=== PATIENT | female | born 1990 | race Two or more races ===

== ENCOUNTER 2019-11-07 17:30 | Emergency (ER) | payer OTHER ==
[2019-11-07 17:37] VITALS: BMI 30.4
[2019-11-07 18:19] VITALS: BP 115/75; PULSE 92; TEMP 98
--- NOTE | 2019-11-07 18:32 | PD.OB.PROG ---
Past Medical History - Primary Care Physician PCP:: Abiola Carty Documenting Provider Type: Attending - Admission Chief Complaint: RT FOOT SPRAIN & PAIN , SWELLING in pt32.6/7 wks gestation History of Present Illness: h/o sprain in Rt foot on 10/03/19 , presently swelling & pain is persistent she came to ER . pt sent from ER for Ob evaluation care ar 2, [facility], . No chart available wt gain 13 lbs h/o uti 2 wks ago treated with antibiotics History Source: Patient Limitations to Obtaining History: No Limitations - Nursing Documentation Maternal Triage Index: Maternal Triage Index ( Priority 4, Non-urgent MFTI) Nursing Documentation Reviewed: Yes - Past Medical History SHOE FOLDER: Denies/None Cardio/Vascular: Denies/None Pulmonary: Denies/None Gastrointestinal: Denies/None Hepatobiliary: Denies/None Renal/: Denies/None Reproductive: Denies/None ...: 5 ...Para: 3 ([address] 06/2006. 01/2010, 08/2015 ) ...Term: 3 (no complications ) ...Induced : 1 (2013, 1st trimester ) ... Weeks Gestation by Dates: 32.6 ...EDC by Sono: 12/27/19 Heme/Onc: Denies/None Infectious Disease: Denies/None Psych: Denies/None Musculoskeletal: Denies/None Rheumatology: Denies/None ENT: Denies/None Endocrine: Denies/None Dermatology: Denies/None - Past Surgical History Additional Surgical History: lt fingers tendon surgery - Smoking History Smoking history: Never smoked - Alcohol/Substance Use Hx Alcohol Use: No History of Substance Use: reports: None Review of Systems - Review of Systems Constitutional: reports: No Symptoms Eyes: reports: No Symptoms HENT: reports: No Symptoms Neck: reports: No Symptoms Cardiovascular: reports: No Symptoms Respiratory: reports: No Symptoms Gastrointestinal: reports: No Symptoms Genitourinary: reports: No Symptoms Breasts: reports: No Symptoms Reported Musculoskeletal: reports: No Symptoms Integumentary: reports: No Symptoms Neurological: reports: No Symptoms Endocrine: reports: No Symptoms Hematology/Lymphatic: reports: No Symptoms Psychiatric: reports: No Symptoms Pain Intensity: 7 (rt ankle pain ) Physical Exam - Obstetrical Vital Signs: Vital Signs Temperature 98.0 F 11/07/19 18:05 Pulse Rate 92 H 11/07/19 18:05 Respiratory Rate 20 11/07/19 18:05 Blood Pressure 115/75 11/07/19 18:05 O2 Sat by Pulse Oximetry (%) 100 11/07/19 17:33 Constitutional: Yes: Well Nourished, Mild Distress (due to foot pain) Eyes: Yes: WNL HENT: Yes: WNL Neck: Yes: WNL Cardiovascular: Yes: WNL Lungs: Clear to auscultation Breast(s): Yes: Other (not done) - Abdominal Exam/OB Fundal Height: 33 Number of Fetuses: Single Presentation: Vertex Contractions: No Monitor Mode: External Heart Rate (range): 140- Heart Rate Location: Midline Category: I Decelerations: None - Vaginal Exam/OB Vaginal Exam Deferred: Yes Vaginal Bleeding: No Speculum Exam: No Dilatation (cm): close Effacement (%): unefface Amniotic Membrane Status: Intact Presentation: Vertex/Position Station: -4 - Physical Exam Musculoskeletal: Yes: WNL Extremities: Yes: WNL. No: Calf Tenderness Edema: No (RT ankle edema , tender) Integumentary: Yes: Tattoos, Other (Rightt ankle edema front of ankle, erythematous, tender, movementd restricte due to pain) Deep Tendon Reflex Grade: Normal +2 ...Motor Strength: WNL Psychiatric: Yes: WNL, Alert Problem List - Problems (1) with 32 completed weeks gestation Code(s): Z3A.32 - 32 WEEKS GESTATION OF (2) Right ankle sprain Code(s): S93.401A - SPRAIN OF UNSPECIFIED LIGAMENT OF RIGHT ANKLE, INIT ENCNTR Assessment/Plan 29 yrs , 32.6/7 wks possible Rt ankle sprain NST reactive , FHR tracing reassuring, not in labor Plan send back to ER for ankle evaluation
--- NOTE | 2019-11-07 19:47 | PDOC ---
History of Present Illness - General Chief Complaint: Labor Assessment Stated Complaint: SWOLLEN ANKLE/31WKS PREG Time Seen by Provider: 11/07/19 19:39 - History of Present Illness Initial Comments: 11/07/19 19:44 7-month-old gravid female 29 years old presents for evaluation of right ankle pain. She describes an inversion injury which happened about a week or so ago. She points to the lateral aspect of the right ankle as the area of her discomfort. Past History - Medical History Allergies/Adverse Reactions: Allergies Allergy/AdvReac Type Severity Reaction Status Date / Time No Known Allergies Allergy Verified 11/07/19 17:33 Home Medications: Ambulatory Orders Tablet 1 tab PO DAILY 11/07/19 COPD: No Other medical history: DENIES - Reproductive History Is Patient Now?: Yes - Immunization History Immunization Up to Date: Yes - Psycho-Social/Smoking History Smoking History: Never smoked - Substance Abuse Hx (Audit-C & DAST Scrn) How often the patient has a drink containing alcohol: Never Score: In Men: 4 or > Positive; In Women: 3 or > Positive: 0 Screen Result (Pos requires Nsg. Audit-10AR): Negative In the last yr the pt used illegal drug/Rx for NonMed reason: No Score: Yes response is considered Positive: 0 Screen Result (Positive result requires Nsg. DAST-10): Negative Review of Systems - Review of Systems Musculoskeletal: Yes: Joint Pain *Physical Exam - Vital Signs Last Vital Signs Temp Pulse Resp BP Pulse Ox 98.0 F 92 H 20 115/75 100 11/07/19 18:05 11/07/19 18:05 11/07/19 18:05 11/07/19 18:05 11/07/19 17:33 - Physical Exam 11/07/19 19:44 Ankle skin color and temperature normal range of motion is slightly limited. There is no tenderness about the proximal fibula or along its distal course. No tenderness about the medial lateral malleolus base of the fifth metatarsal or navicular. Mild tenderness over the ATFL without instability no gross sensorimotor deficits neurovascular intact. Medical Decision Making - Medical Decision Making 11/07/19 19:44 Patient refused crutches. She has no bony tenderness I am in agreement with this I can feel I can safely let her be discharged with a Aircast weight welfare project manager weight-bear as tolerated with crutches and follow-up with orthopedics. She is in agreement with the plan I explained to her I cannot rule out a fracture without it x-rayed I have reviewed the pathophysiology with the patient. They are in agreement with the treatment plan all questions were answered to their satisfaction. Understanding for follow-up without fail was also conveyed to the patient. Again they are in agreement. Discharge - Discharge Information Problems reviewed: Yes Clinical Impression/Diagnosis: Right ankle sprain Condition: Stable Disposition: HOME - Admission No - Follow up/Referral Referrals: Grey Cain DO [Staff Physician] - - Patient Discharge Instructions Additional Instructions: You may weight-bear as tolerated with use of crutches in the Aircast Tylenol as directed for pain. Return to the emergency room for worsening symptoms. And without fail please follow-up with orthopedic surgery in 1 to 2 days for further evaluation and treatment options. - Post Discharge Activity
== END 2019-11-07 19:58 | disposition home or self-care (01) ==
LOC: JER 17:30 → JERFT 17:30
DX: S93.401A Sprain of unspecified ligament of right ankle, initial encounter (principal); Z3A.32 32 weeks gestation of pregnancy
CPT/HCPCS: 99282-25

== ENCOUNTER 2019-12-26 00:15 | Inpatient (IN) | payer OTHER ==
--- OUTSIDE RECORDS SUMMARY | 2019-12-26 00:37 | XMS ---
:1990 Author Organization [facility] Care Team Providers Name Role Phone ED STAFF PHYSICIAN, STAFF Unavailable Unavailable ED STAFF PHYSICIAN Unavailable Unavailable Re-disclosure Warning The records that you are about to access may contain information from federally- assisted alcohol or drug abuse programs. If such information is present, then the following federally mandated warning applies: This information has been disclosed to you from records protected by federal confidentiality rules (42 CFR part 2). The federal rules prohibit you from making any further disclosure of this information unless further disclosure is expressly permitted by the written consent of the person to whom it pertains or as otherwise permitted by 42 CFR part 2. A general authorization for the release of medical or other information is NOT sufficient for this purpose. The Federal rules restrict any use of the information to criminally investigate or prosecute any alcohol or drug abuse patient.The records that you are about to access may contain highly sensitive health information, the redisclosure of which is protected by Article 27-F of the [place] Public [employer] law. If you continue you may haveaccess to information: Regarding HIV / AIDS; Provided by facilities licensed or operated by the [place] Office of Mental Health; or Provided by the [place] Office for People With Developmental Disabilities. If such information is present, then the following [place] mandated warning applies: This information has been disclosed to you from confidential records which are protected by state law. State law prohibits you from making any further disclosure of this information without the specific written consent of the person to whom it pertains, or as otherwise permitted by law. Any unauthorized further disclosure in violation of state law may result in a fine or penitentiary sentence or both. A general authorization for the release of medical or other information is NOT sufficient authorization for further disclosure. Encounters Encounter Providers Location Date Indications Data Source(s ) Emergency Attender: ED STAFF H 06/04/2019 [facility] PHYSICIANAttender: 09:25:[address] [facility] STAFF ED STAFF - 06/05/2019 PHYSICIANAdmitter: 02:35:00 AM EDT ED STAFF PHYSICIAN Patient discharged. Insurance Providers Payer name Policy type Policy ID Covered Covered alliance party's Policy P fito / Coverage alliance party ID relationship to Phan Inf ormation type phan [facility] [id number] NON CAP O [employer] O [id number] [facility] [id number] ESSENTIALS Problems, Conditions, and Diagnoses Code Display Name Description Problem Type Effective Dates Data Source(s) Z33.1 state, STATE, Diagnosis 06/04/2019 Yulia car [facility] incidental INCIDENTAL 09:25:00 PM EDT Medical C enter R10.9 Unspecified UNSPECIFIED Diagnosis 06/04/2019 [facility] abdominal pain ABDOMINAL PAIN 09:25:[address] [facility] R51 Headache HEADACHE Diagnosis 06/04/2019 [facility] 09:25:00 PM EDT Medical C enter Results ID Date Data Source [id number] 08/18/2019 03:56:00 PM EDT [facility] Name Value Range Interpretation Description Data Sup porting Code Source(s) Document(s ) SARS [facility] CORONAVIRUS 2 RNA This lab was ordered by [facility] and reported by [facility]. ID Date Data Source HematologyRou.[id number] 06/04/2019 11:20:[address] [facility] 0400 Name Value Range Interpretation Description Data Sup porting Code Source(s) Document(s ) Hemoglobin 12.3-16. <content [facility] [Mass/volume] in 0 styleCode="[facility] Blood ">Hemoglobin Medical </content>13.3 Center G/DL<content styleCode="Ital ics"> (12.3-16.0 G/DL)</content> Leukocytes 4.4-11.0 <content [facility] [#/volume] in styleCode="[facility] Blood by ">White Blood Medical Automated count Cell Count Center </content>7.48 KCUMM<content styleCode="Ital ics"> (4.4-11.0 KCUMM)</content > Erythrocytes 4.0-5.1 <content [facility] [#/volume] in styleCode="[facility] Blood by ">Red Blood Medical Automated count Cell Count Center </content>4.28 MCUMM<content styleCode="Ital ics"> (4.0-5.1 MCUMM)</content > Hematocrit 36.0-46. <content [facility] [Volume 0 styleCode="[facility] Fraction] of ">Hematocrit Medical Blood by </content>39.2 Center Automated count %<content styleCode="Ital ics"> (36.0-46.0 %)</content> Erythrocyte mean 80.0-100 <content [facility] corpuscular .0 styleCode="[facility] volume [Entitic ">Mean Medical volume] by Corpuscular Center Automated count Volume </content>91.6 FL<content styleCode="Ital ics"> (80.0-100.0 FL)</content> Erythrocyte 11.5-14. <content [facility] distribution 5 styleCode="[facility] width [Ratio] by ">Red Cell Medical Automated count Distribution Center Width </content>12.8 %<content styleCode="Ital ics"> (11.5-14.5 %)</content> Erythrocyte mean 26.0-34. <content [facility] corpuscular 0 styleCode="[facility] hemoglobin ">Mean Medical [Entitic mass] Corposcular Center by Automated Hemoglobin count </content>31.1 PG<content styleCode="Ital ics"> (26.0-34.0 PG)</content> Platelets 130-400 <content [facility] [#/volume] in styleCode="[facility] Blood by ">Platelet Medical Automated count Count Center </content>310 KCUMM<content styleCode="Ital ics"> (130-400 KCUMM)</content > Erythrocyte mean 32.0-37. <content [facility] corpuscular 0 styleCode="[facility] hemoglobin ">Mean Corpus. Medical concentration Hgb Center [Mass/volume] by Concentration Automated count (MCHC) </content>33.9 G/DL<content styleCode="Ital ics"> (32.0-37.0 G/DL)</content> Platelet mean 8.0-11.0 <content [facility] volume [Entitic styleCode="[facility] volume] in Blood ">Mean Platelet Medical by Automated Volume Center count </content>9.7 FL<content styleCode="Ital ics"> (8.0-11.0 FL)</content> Monocytes 3.0-10.0 <content [facility] [#/volume] in styleCode="[facility] Blood by ">Monocyte Medical Automated count </content>7.9 Center %<content styleCode="Ital ics"> (3.0-10.0 %)</content> Neutrophils 36-66 <content [facility] [#/volume] in styleCode="[facility] Blood by ">Neutrophil Medical Automated count </content>58.7 Center %<content styleCode="Ital ics"> (36-66 %)</content> Lymphocytes 24.0-44. <content [facility] [#/volume] in 0 styleCode="[facility] Blood by ">Lymphocyte Medical Automated count </content>30.6 Center %<content styleCode="Ital ics"> (24.0-44.0 %)</content> UNK 1.0-4.8 <content [facility] styleCode="[facility] ">Lymphocyte Medical Count Center </content>2.29 KCUMM<content styleCode="Ital ics"> (1.0-4.8 KCUMM)</content > UNK 1.6-7.3 <content [facility] styleCode="[facility] ">Neutrophil Medical Count Center </content>4.39 KCUMM<content styleCode="Ital ics"> (1.6-7.3 KCUMM)</content > UNK 0.2-0.9 <content [facility] styleCode="[facility] ">Monocyte Medical Count Center </content>0.59 KCUMM<content styleCode="Ital ics"> (0.2-0.9 KCUMM)</content > UNK 0 <content [facility] styleCode="[facility] ">Nucleated Red Medical Blood Cell Center </content>0.0 /100<content styleCode="Ital ics"> (0 /100)</content> Eosinophils 0-5.0 <content [facility] [#/volume] in styleCode="[facility] Blood by ">Eosinophil Medical Automated count </content>2.0 Center %<content styleCode="Ital ics"> (0-5.0 %)</content> UNK 0.0-0.6 <content [facility] styleCode="[facility] ">Eosinophil Medical Count Center </content>0.15 KCUMM<content styleCode="Ital ics"> (0.0-0.6 KCUMM)</content > Basophils 0.0-1.0 <content [facility] [#/volume] in styleCode="[facility] Blood by ">Basophil Medical Automated count </content>0.3 Center %<content styleCode="Ital ics"> (0.0-1.0 %)</content> UNK 0.0-0.3 <content [facility] styleCode="[facility] ">Basophil Medical Count Center </content>0.02 KCUMM<content styleCode="Ital ics"> (0.0-0.3 KCUMM)</content > UNK < 1 <content [facility] styleCode="[facility] ">Immature Medical Granulocyte Center Ratio </content>0.5 %<content styleCode="Ital ics"> (< 1 %)</content> UNK 0.0 <content [facility] styleCode="[facility] ">Nucleated Red Medical Blood Cell Center Count </content>0.00 KCUMM<content styleCode="Ital ics"> (0.0 KCUMM)</content > UNK 0-0.1 <content [facility] styleCode="[facility] ">Immature Medical Granulocyte Center Count </content>0.04 KCUMM<content styleCode="Ital ics"> (0-0.1 KCUMM)</content > ID Date Data Source GFR(Creatinine).[id number] 06/04/2019 11:20:[address] [facility] 0-0400 Name Value Range Interpretation Code Description Data Meme rce(s) Supporting Document(s ) UNK > 60 <content [facility] styleCode="Bold"> Medical Cent er EGFR </content>157 GFR<content styleCode="Italic s"> (> 60 GFR)</content> ID Date Data Source [id number] 06/04/2019 11:20:00 PM EDT [facility] Name Value Range Interpretation Description Data Sup porting Code Source(s) Document(s ) Potassium 3.5-5.3 <content [facility] [Moles/volume] styleCode="[facility] in Serum or d">Potassium Medical Plasma </content>4.0 Center MEQ/L<content styleCode="Neda lics"> (3.5-5.3 MEQ/L)</conten t> Carbon 22-30 <content [facility] dioxide, total styleCode="[facility] [Moles/volume] d">Carbon Medical in Serum or Dioxide Center Plasma </content>26 MEQ/L<content styleCode="Neda lics"> (22-30 MEQ/L)</conten t> Sodium 137-145 Below low normal <content [facility] [Moles/volume] styleCode="[facility] in Serum or d">Sodium Medical Plasma </content>136 Center MEQ/L L<content styleCode="Neda lics"> (137-145 MEQ/L)</conten t> Chloride 98-107 <content [facility] [Moles/volume] styleCode="[facility] in Serum or d">Chloride Medical Plasma </content>104 Center MEQ/L<content styleCode="Neda lics"> (98-107 MEQ/L)</conten t> UNK 7-17 <content [facility] styleCode="[facility] d">BUN Medical </content>12 Center MG/DL<content styleCode="Neda lics"> (7-17 MG/DL)</conten t> Glucose 74-106 <content [facility] [Mass/volume] styleCode="[facility] in Serum or d">Glucose Medical Plasma </content>87 Center MG/DL<content styleCode="Neda lics"> (74-106 MG/DL)</conten t> Creatinine 0.5-1.3 <content [facility] [Mass/volume] styleCode="[facility] in Serum or d">Creatinine Medical Plasma </content>0.5 Center MG/DL<content styleCode="Neda lics"> (0.5-1.3 MG/DL)</conten t> UNK > 60 <content [facility] styleCode="[facility] d">EGFR Medical </content>157 Center GFR<content styleCode="Neda lics"> (> 60 GFR)</content> Calcium 8.4-10.2 <content [facility] [Mass/volume] styleCode="[facility] in Serum or d">Calcium Medical Plasma </content>10.2 Center MG/DL<content styleCode="Neda lics"> (8.4-10.2 MG/DL)</conten t> ID Date Data Source [id number] 06/04/2019 09:46:[address] [facility] 0 Name Value Range Interpretation Description Data Sup porting Code Source(s) Document(s ) Glucose NEGATIVE <content [facility] [Mass/volume] styleCode="[facility] in Urine by d">Urine Medical Test strip Glucose Center </content>NEGA TIVE MG/DL<content styleCode="Neda lics"> (NEGATIVE MG/DL)</conten t> Color of Urine YELLOW <content [facility] styleCode="[facility] d">Color, Medical Urine Center </content>YELL OW <content styleCode="Neda lics"> (YELLOW )</content> UNK CLEAR <content [facility] styleCode="[facility] d">Urine Medical Clarity Center </content>SOO R <content styleCode="Neda lics"> (CLEAR )</content> pH of Urine by 4.5-8.0 <content [facility] Test strip styleCode="[facility] d">Urine pH Medical </content>6.0 Center <content styleCode="Neda lics"> (4.5-8.0 )</content> Ketones NEGATIVE <content [facility] [Mass/volume] styleCode="[facility] in Urine by d">Urine Medical Test strip Ketone Center </content>NEGA TIVE MG/DL<content styleCode="Neda lics"> (NEGATIVE MG/DL)</conten t> Hemoglobin NEGATIVE <content [facility] [Presence] in styleCode="[facility] Urine by Test d">Urine Blood Medical strip </content>NEGA Center TIVE <content styleCode="Neda lics"> (NEGATIVE )</content> UNK NEGATIVE <content [facility] styleCode="[facility] d">Urine Medical Bilirubin Center </content>NEGA TIVE <content styleCode="Neda lics"> (NEGATIVE )</content> Specific 1.015-1.02 <content [facility] gravity of 5 styleCode="[facility] Urine by Test d">Urine Medical strip Specific Center [place] </content>1.02 0 <content styleCode="Neda lics"> (1.015-1.025 )</content> Leukocyte NEGATIVE <content [facility] esterase styleCode="[facility] [Presence] in d">Urine Medical Urine by Test Leukocyte Center strip </content>NEGA TIVE <content styleCode="Neda lics"> (NEGATIVE )</content> Nitrite NEGATIVE <content [facility] [Presence] in styleCode="[facility] Urine by Test d">Urine Medical strip Nitrite Center </content>NEGA TIVE <content styleCode="Neda lics"> (NEGATIVE )</content> Urobilinogen 0.2-1.0 <content [facility] [Units/volume] styleCode="[facility] in Urine by d">Urine Medical Test strip Urobilinogen Center </content>0.2 MG/DL<content styleCode="Neda lics"> (0.2-1.0 MG/DL)</conten t> Protein NEGATIVE <content [facility] [Mass/volume] styleCode="[facility] in Urine by d">Urine Medical Test strip Protein Center </content>NEGA TIVE MG/DL<content styleCode="Neda lics"> (NEGATIVE MG/DL)</conten t> Procedure Social History Code Duration Value Status Description Data Source(s ) Smoking 06/04/2019 Denies Ever completed Denies Ever Smoked [facility] 11:08:00 PM EDT Smoked Medical C enter Smoking 06/04/2019 Denies Ever completed Denies Ever Smoked [facility] 09:45:00 PM EDT Smoked Medical C enter Smoking 06/04/2019 Denies Ever completed Denies Ever Smoked [facility] 09:41:00 PM EDT Smoked Medical C enter Vital Signs ID Date Data Source UNK Name Value Range Interpretation Code Description Data Source(s) Body temperature 36.196886 [id number] [facility] Respiratory rate 14 /min 14 /min [facility] Oxygen saturation 96 % 96 % [facility] by Pulse oximetry Heart rate 74 /min 74 /min [facility] Diastolic blood 60 mm[Hg] 60 mm[Hg] [facility] Systolic blood 118 mm[Hg] 118 mm[Hg] [facility] Body temperature 36.409469 [id number] [facility] Respiratory rate 17 /min 17 /min [facility] Oxygen saturation 99 % 99 % [facility] by Pulse oximetry Heart rate 76 /min 76 /min [facility] Diastolic blood 61 mm[Hg] 61 mm[Hg] [facility] Systolic blood 120 mm[Hg] 120 mm[Hg] [facility] Body temperature 36.685338 36.096884 [facility] Respiratory rate 17 /min 17 /min [facility] Oxygen saturation 98 % 98 % [facility] by Pulse oximetry Heart rate 87 /min 87 /min [facility] Diastolic blood 75 mm[Hg] 75 mm[Hg] [facility] Systolic blood 118 mm[Hg] 118 mm[Hg] [facility] pressure Medical Center
[2019-12-26] MEDS ORDERED: LIDOCAINE HCL 1% PRESERVATIVE FREE - 30ML VIAL ONE (00:44)
[2019-12-26] MEDS ORDERED: OXYTOCIN 20 UNITS in 0.9% NS 20 UNIT/1,000 ML INFUS.BAG IV ONE (00:44)
--- OUTSIDE RECORDS SUMMARY | 2019-12-26 00:44 | XMS ---
:1990 [facility] Providers Name Role Phone ED [...] is protected by Article 27-F of the [place] State Public Health law. If you continue you may haveaccess to information: Regarding HIV / AIDS; Provided by facilities licensed or operated by the [facility] Office of Mental Health; or Provided by the [facility] Office for People With Developmental Disabilities. If such information is present, then the following [facility] mandated warning applies: This information has been [...] law may result in a fine or detention sentence or both. A general authorization for the release of medical or other information is NOT sufficient authorization for further disclosure. Encounters Encounter Providers Location Date Indications Data Source(s ) Emergency Attender: ED STAFF H 06/04/2019 [facility] PHYSICIANAttender: 09:25:00 PM EDT [facility] STAFF ED STAFF - 06/05/2019 PHYSICIANAdmitter: 02:35:00 AM EDT ED STAFF PHYSICIAN Patient discharged. Insurance Providers Payer name Policy type Policy ID Covered Covered libertarian's Policy P fito / Coverage libertarian ID relationship to Phan Inf ormation type phan VENKAT [employer] [id number] NON CAP O [employer] O [id number] [facility] [id number] ESSENTIALS Problems, Conditions, and Diagnoses Code Display Name Description Problem Type Effective Dates Data Source(s) Z33.1 state, STATE, Diagnosis 06/04/2019 [facility] incidental INCIDENTAL 09:25:00 PM EDT Medical C enter R10.9 Unspecified UNSPECIFIED Diagnosis 06/04/2019 [facility] abdominal pain ABDOMINAL PAIN 09:25:00 PM EDT [facility] R51 Headache HEADACHE Diagnosis 06/04/2019 [facility] 09:25:00 PM EDT Medical C enter Results ID Date Data Source [id number] 08/18/2019 03:56:00 PM EDT [facility] Name Value Range Interpretation Description Data Sup porting Code Source(s) Document(s ) SARS [facility] CORONAVIRUS 2 RNA This lab was ordered by [facility] and reported by [facility]. ID Date Data Source HematologyRou.[id number] 06/04/2019 11:20:00 PM EDT [facility] 0400 Name Value Range Interpretation Description Data Sup porting Code Source(s) Document(s ) Hemoglobin 12.3-16. <content [facility] [Mass/volume] in 0 styleCode="[facility] Blood ">Hemoglobin Medical </content>13.3 Center G/DL<content styleCode="Ital [...] (0-0.1 [facility])</content > ID Date Data Source GFR(Creatinine).[id number] 06/04/2019 11:20:00 PM EDT [facility] 0-0400 Name Value Range Interpretation Code Description Data Meme rce(s) Supporting Document(s ) UNK > 60 <content [facility] styleCode="Bold"> Medical Cent er EGFR </content>157 GFR<content styleCode="Italic s"> (> 60 GFR)</content> ID Date Data Source [id number] 06/04/2019 11:20:00 PM EDT [facility] Name Value Range Interpretation Description Data [...] (8.4-10.2 MG/DL)</conten t> ID Date Data Source [id number] 06/04/2019 09:46:00 PM EDT [facility] 0 Name Value Range Interpretation Description Data [...] )</content> Ketones NEGATIVE <content [facility] [Mass/volume] styleCode="[facility] in Urine by d">Urine Medical Test strip [...] by Test d">Urine Medical strip Specific Center [place] </content>1.02 0 <content styleCode="Neda lics"> (1.015-1.025 )</content> Leukocyte NEGATIVE <content [facility] esterase styleCode="[facility] [Presence] in d">Urine Medical Urine by Test Leukocyte Center strip </content>NEGA TIVE <content styleCode="Neda lics"> (NEGATIVE )</content> Nitrite NEGATIVE <content [facility] [Presence] in styleCode="[facility] Urine by Test d">Urine Medical strip Nitrite Center </content>NEGA TIVE <content styleCode="Neda lics"> (NEGATIVE )</content> Urobilinogen 0.2-1.0 <content [facility] [Units/volume] styleCode="[facility] in Urine by d">Urine Medical Test strip [...] Interpretation Code Description Data Source(s) Body temperature 36.097641 36.619595 [facility] Respiratory rate 14 /min 14 /min [facility] Oxygen saturation 96 % 96 % [facility] by Pulse oximetry Heart rate 74 /min 74 /min [facility] Diastolic blood 60 mm[Hg] 60 mm[Hg] [facility] Systolic blood 118 mm[Hg] 118 mm[Hg] [facility] Body temperature 36.334426 36.176634 [facility] Respiratory rate 17 /min 17 /min [facility] Oxygen saturation 99 % 99 % [facility] by Pulse oximetry Heart rate 76 /min 76 /min [facility] Diastolic blood 61 mm[Hg] 61 mm[Hg] [facility] Systolic blood 120 mm[Hg] 120 mm[Hg] [facility] Body temperature 36.701593 36.592770 [facility] Respiratory rate 17 /min 17 /min [facility] Oxygen saturation 98 % 98 % [facility] by Pulse oximetry Heart rate 87 /min 87 /min [facility] Diastolic blood 75 mm[Hg] 75 mm[Hg] [facility] Systolic blood 118 mm[Hg] 118 mm[Hg] [facility]
[2019-12-26 01:03] LABS: BASO % 0.4 % (0-2.0); EOS % 0.9 % (0-4.5); HEMATOCRIT 43.8 % (32.4-45.2); LYMPH % 25.7 % (8-40); MCH 31.7 pg (25.7-33.7); MCHC 34.3 g/dl (32.0-36.0); MEAN CELL VOLUME 92.3 fl (80-96); MEAN PLT VOLUME 8.8 fl (7.5-11.1); MONO % 7.3 % (3.8-10.2); NEUT % 65.7 % (42.8-82.8); PLATELET COUNT 271 K/MM3 (134-434); RBC 4.74 M/mm3 (3.60-5.2); WHITE BLOOD COUNT 10.8 K/mm3 (4.0-10.0)
[2019-12-26 01:14] LABS: INR 0.91 (0.83-1.09); PROTHROMBIN TIME (PATIENT) 10.7 SEC (9.7-13.0)
[2019-12-26] MEDS ORDERED: MISOPROSTOL 100 MCG TABLET ONE (01:15)
[2019-12-26 01:17] LABS: ACTIVATED PTT 31.3 SECONDS (25.2-36.5)
[2019-12-26] MEDS ORDERED: BENZOCAINE 28 GM HEMORRHOIDAL OINTMENT TP PRN (01:20)
[2019-12-26] MEDS ORDERED: BISACODYL 10 MG SUPP.RECT RC PRN (01:20)
[2019-12-26] MEDS ORDERED: BENZOCAINE 20% 57 GM BOTTLE TP PRN (01:20)
[2019-12-26] MEDS ORDERED: WITCH HAZEL 50% (TUCKS) 40 PAD/JAR PAD TP PRN (01:20)
--- NOTE | 2019-12-26 01:25 | HP ---
Past Medical History - Primary Care Physician PCP:: Mateus Castillo - Admission Chief Complaint: multiparous female at term ready to deliver History Source: Patient Limitations to Obtaining History: No Limitations - Past Medical History Cardiovascular: No: AFIB, Aneurysm, Aortic Insufficiency, Aortic Stenosis, CAD, CHF, Deep Vein Thrombosis, HTN, Hyperlipdemia, NE, Mitral Insufficiency, Mitral Stenosis, Murmur, Pulmonary Hypertension, Other Pulmonary: No: Asthma, Bronchitis, Cancer, COPD, O2 Dependent, Pneumonia, Previously Intubated, Pulmonary Embolus, Pulmonary Fibrosis, Sleep Apnea, Other Gastrointestinal: No: Ascites, Cancer, Constipation, Crohn's Disease, Diverticulitis, Diverticulosis, Esophageal Varices, Gastritis, GERD, GI Bleed, Hemorrhoids, Hiatal Hernia, Inflamatory Bowel Disease, Irritable Bowel Disease, Pancreatitis, Peptic Ulcer Disease, Ulcerative Colitis, Other Hepatobiliary: No: Cirrhosis, Cholelithiasis, Cholecystitis, Choledocholithiasis, Hepatitis A, Hepatitis B, Hepatitis C, Other Renal/: No: Renal Failure, Renal Inusuff, BPH, Cancer, Hematuria, Hemodialys is, Neurogenic Bladder, Renal Calculi, UTI, Other Reproductive: No: Ectopic , Endometriosis, Fibroids, PID, Polycystic Ovary Syndrome, Postmenopausal, Other Heme/Onc: No: Anemia, B12 Deficiency, Bleeding Disorder, Cancer, Current Chemotherapy, Current Radiation Therapy, Hemochromatosis, Hypercoaguable State, Myeloproliferative Synd, Sickle Cell Disease, Sickle Cell Trait, Thrombocytopenia, Other Infectious Disease: No: AIDS, C-Diff, Herpes Zoster, HIV, MRSA, STD's, Tuberculosis, VREF, Other Psych: No: Addictions, Anxiety, Bipolar, Depression, Panic, Psychosis, Schizophrenia, Other Musculoskeletal: No: Bursitis, Chronic low back pain, Hemiparesis, Hemiplegia, Osteoarthritis, Paraplegia, Other Rheumatology: No: Fibromyalgia, Gout, Lupus, Rheumatoid Arthritis, Sarcoidosis, Vasculitis, Other ENT: No: Allergic Rhinitis, Sinusitis, Other Endocrine: No: Pecos's Disease, Naeem's Disease, Diabetes Insipidus, Diabetes Mellitus, Hyperparathyroidism, Hyperthyroidism, Hypothyroidism, O steopenia, SIADH, Other Dermatology: No: Basal Cell, Cellulitis, Eczema, Melanoma, Psoriasis, Squamous Cell, Other - Past Surgical History Past Surgical History: Yes: None - Smoking History Smoking history: Never smoked - Alcohol/Substance Use Hx Alcohol Use: No History of Substance Use: reports: None Home Medications - Allergies Allergies/Adverse Reactions: Allergies Allergy/AdvReac Type Severity Reaction Status Date / Time No Known Allergies Allergy Verified 12/13/19 09:20 - Home Medications Home Medications: Ambulatory Orders Tablet 1 tab PO DAILY 11/07/19 Ferrous Sulfate [Feosol] 325 mg PO DAILY 12/13/19 Family Medical History Family History: Unable to Obtain Review of Systems Findings/Remarks: urge to push - Review of Systems Constitutional: reports: No Symptoms Eyes: reports: No Symptoms HENT: reports: No Symptoms Neck: reports: No Symptoms Cardiovascular: reports: No Symptoms Respiratory: reports: No Symptoms Gastrointestinal: reports: No Symptoms Genitourinary: reports: No Symptoms Breasts: reports: No Symptoms Reported Musculoskeletal: reports: No Symptoms Integumentary: reports: No Symptoms Neurological: reports: No Symptoms Endocrine: reports: No Symptoms Hematology/Lymphatic: reports: No Symptoms Psychiatric: reports: No Symptoms Physical Exam - Maternity Constitutional: Yes: Well Nourished HENT: Yes: Atraumatic Neck: Yes: Supple Cardiovascular: Yes: Regular Rate and Rhythm - Abdominal Exam/OB Number of Fetuses: Single Presentation: Vertex Contractions: Yes Regularity: Regular Intensity: Mod/Strong Monitor Mode: External Heart Rate (range): 145 Category: I Accelerations: Uniform Decelerations: None - Vaginal Exam/OB Vaginal Bleeding: No Speculum Exam: No Dilatation (cm): 10 Effacement (%): 100 Amniotic Membrane Status: Ruptured Amniotic Fluid: Yes: Clear Presentation: Vertex/Position Station: +4 - Physical Exam Musculoskeletal: Yes: WNL Extremities: Yes: WNL Edema: Yes Edema: LLE: Trace, RLE: Trace Integumentary: Yes: WNL Deep Tendon Reflex Grade: Normal +2 ...Motor Strength: WNL Psychiatric: Yes: Alert, Oriented - Labs Lab Results: CBC, BMP 12/26/19 00:50 Imaging - Results Ultrasound: Image Reviewed Assessment/Plan 29 y/o multiparous female presenting to L&D fully dilated ready for delivery, reassuring status and stable maternal condition -anticipate vaginal delivery
--- NOTE | 2019-12-26 01:28 | PN ---
Delivery - Delivery Type of Anesthesia: None Episiotomy/Laceration: None EBL (cc): 250 Delivery, Single - Stages of Labor Placenta: Yes: Spontaneous - Condition of Nail Expert/Welfare Director Present: No Infant Gender: Male Position: Left, OA Remarks - Remarks Remarks: Infant delivered spontaneously and precipitously with maternal expulsive efforts, DENICE. Loose nuchal cord removed and rest of body delivered w/o difficulty. Cord clamped and cut after delay and sample for blood obtained. Placenta delivered spontaneously and intact, 3VC. Exam revealed excellent hemostasis and no lacerations. Fundus is firm and 800mcg of misoprostol administered prophylactically NV. Sponge/instrument count correct x 2 and confirmed by nurse.
[2019-12-26] MEDS ORDERED: OXYTOCIN 20 UNITS in 0.9% NS 20 UNIT/1,000 ML INFUS.BAG IV SCH (01:30)
[2019-12-26] MEDS ORDERED: ELECTROLYTE-148 SOLN 1,000 ML IV SCH (01:30)
[2019-12-26] MEDS ORDERED: MISOPROSTOL 100 MCG TABLET PV ONE (01:31)
[2019-12-26 01:36] LABS: BLOOD UREA NITROGEN 9.3 mg/dL (7-18); CALCIUM 9.1 mg/dL (8.5-10.1); CREATININE 0.5 mg/dL (0.55-1.3); POTASSIUM 4.4 mmol/L (3.5-5.1)
[2019-12-26 02:33] VITALS: BMI 32.4
[2019-12-26] MEDS: ACETAMINOPHEN 325 MG TABLET (FP) PO PRN ×2 (08:23→16:40)
[2019-12-26] MEDS: IBUPROFEN 600 MG TABLET (FP) PO PRN ×2 (08:24→16:40)
[2019-12-26] MEDS ORDERED: METHYLERGONOVINE MALEATE 0.2 MG/1 ML AMP IM ONE (15:30)
--- NOTE | 2019-12-26 16:01 | PD.OB.PROG ---
Past Medical History - Primary Care Physician PCP:: Abiola Carty Documenting Provider Type: Laborist - Admission Chief Complaint: called by nurse to eval this pp pt on behalf of Dr. Carty. Pt. noted to has gush of blood w clots when got up to go to bathroom. otherwise feels ok. no dizziness or syncope. c/o some uterine cramps but otherwise feels ok.. History of Present Illness: pt. admitted last night in labor 2nd stage underwent , ebl 200. 800 cytotec given pr at that time per delivery note (prophylactically). ? precip. intact perineum. History Source: Patient Limitations to Obtaining History: Language Barrier (nurse w cyracom phone) - Nursing Documentation Maternal Triage Index: Maternal Triage Index ( Priority 3, Prompt MFTI) Hemorrhage Risk Assessment: Risk Level Medium Risk High Level Risk Factors for None Hemorrhage Medium Level Risk Factors for Four (4) or greater Hemorrhage Low Level Risk Factors for Jenkins Pregnaancy Hemorrhage Nursing Documentation Reviewed: Yes - Past Medical History ...: 5 ...Para: 3 ...Term: 3 ...: 0 ...Spon : 0 ...Induced : 1 ...Living Children: 3 ...Multiple Gestation: 0 ...LMP: 03/22/19 ... Weeks Gestation by Dates: 39.5 ...EDC by Dates: 12/27/19 ...EDC by Sono: 12/27/19 - Past Surgical History Past Surgical History: Yes: None - Smoking History Smoking history: Never smoked Have you smoked in the past 12 months: No - Alcohol/Substance Use Hx Alcohol Use: No History of Substance Use: reports: None Physical Exam - Obstetrical Vital Signs: Vital Signs Temperature 98.8 F 12/26/19 10:00 Pulse Rate 90 12/26/19 10:00 Respiratory Rate 18 12/26/19 10:00 Blood Pressure 105/69 12/26/19 10:00 O2 Sat by Pulse Oximetry (%) 98 12/26/19 10:00 Constitutional: Yes: Well Nourished, No Distress, Calm - Vaginal Exam/OB Vaginal Exam Deferred: No Vaginal Bleeding: Moderate (blood clots expressed at time of ve. fundus firm and at umbilicus after evacuation and bimanual massage. no active bleeding noted pv after expressed clots. VE: intact perineum. no lacerations or lesions noted. EBL (including clots when went to BR per nurse) : ~500 ml total.) - Labs Lab Results: CBC, BMP 12/26/19 00:50 12/26/19 00:50 Assessment/Plan 29 P4 s/p at term ppd0 episode of PPH ~ 500 ebl responding to uterotonics, fundal massage w evacuation of clots. nurse notified Dr. Carty (ordered pitocin and methergine). I spoke with her as well -she will come see pt. for further eval & mgmt. cbc ordered. cont. close monitoring
[2019-12-26 17:52] LABS: BASO % 0.4 % (0-2.0); EOS % 0.6 % (0-4.5); HEMATOCRIT 38.7 % (32.4-45.2); HEMOGLOBIN 13.3 GM/dL (10.7-15.3); LYMPH % 15.2 % (8-40); MCH 31.8 pg (25.7-33.7); MCHC 34.4 g/dl (32.0-36.0); MEAN CELL VOLUME 92.6 fl (80-96); MEAN PLT VOLUME 8.7 fl (7.5-11.1); MONO % 8.2 % (3.8-10.2); NEUT % 75.6 % (42.8-82.8); PLATELET COUNT 211 K/MM3 (134-434); RBC 4.19 M/mm3 (3.60-5.2); RDW 13.9 % (11.6-15.6); WHITE BLOOD COUNT 11.6 K/mm3 (4.0-10.0)
[2019-12-26 18:03] LABS: INR 0.91 (0.83-1.09); PROTHROMBIN TIME (PATIENT) 10.7 SEC (9.7-13.0)
[2019-12-26 18:05] LABS: ACTIVATED PTT 31.2 SECONDS (25.2-36.5)
[2019-12-26 20:31] VITALS: PULSE 93; TEMP 98.2
--- NOTE | 2019-12-26 23:35 | PN ---
Progress Note (short form) - Note Progress Note: was notified approx at 3.45 pm pt had gush of heavy vaginal bleeding, with blood clots when she went to bathroom ..she had with intact perineum at 1.00AM pt had no c/o dizziness or lightheadedness she was ok iv was d/randee until nurse went for repeat v/s . V/S were stable I ordered IV pitocin . Im Metrgine 0.2 mg stat . nurse expressed urgency, since i was not in the hosp , I asked her to request Laborist inspection and testing supervisor to see the patient, DR Mendez attended the patient, , he removed large blood clots from ut & vagina he also noted that post delivery pt was given 800 mcg of cytotec HI Repeat cbc coag were ordered v/s were stable I examine the pt at 5.00 PM she was alert , well oriented in time & space p/a ut was firm mid way between pubis & umblicus pelvic exam repeated , minmal bleeding from vagina, cx closed , no more blood clots expressed Selected Entries 12/26/19 12/26/19 12/26/19 14:00 18:00 20:27 Temperature 98.5 F 98.1 F 98.2 F Pulse Rate 80 85 93 H Blood Pressure 107/68 129/66 113/74 I told nurse to keep watch on bleeding & v/s , let not bladder get distended continue iv pitocin 200ml/hr until 6.00 PM . & then to 100ml/hr at night notify me PRN Laboratory Tests 12/26/19 12/26/19 12/26/19 17:35 17:35 17:35 WBC 11.6 H RBC 4.19 Hgb 13.3 Hct 38.7 MCV 92.6 MCH 31.8 MCHC 34.4 RDW 13.9 Plt Count 211 D MPV 8.7 Absolute Neuts (auto) 8.7 H Neutrophils % 75.6 Lymphocytes % 15.2 D Monocytes % 8.2 Eosinophils % 0.6 Basophils % 0.4 Nucleated RBC % 0 PT with INR 10.70 INR 0.91 PTT (Actin FS) 31.2 Fibrinogen 395.0 Laboratory Tests 12/26/19 00:50 Hgb 15.0 Hct 43.8 follow up checkup normal, minimal bleeding pt stable
--- NOTE | 2019-12-27 07:59 | DS ---
Physical Exam-MEDICAL GENETICS DIRECTOR Vital Signs: Vital Signs Temperature 98.2 F 12/26/19 20:27 Pulse Rate 93 H 12/26/19 20:27 Respiratory Rate 18 12/26/19 20:27 Blood Pressure 113/74 12/26/19 20:27 O2 Sat by Pulse Oximetry (%) 99 12/26/19 18:00 Constitutional: Yes: Well Nourished, No Distress Eyes: Yes: WNL HENT: Yes: WNL Neck: Yes: WNL Cardiovascular: Yes: WNL Respiratory: Yes: WNL Gastrointestinal: Yes: WNL ....Post : Yes: Uterus firm (below umblicus), Uterus non-tender, Moderate lochia rubra (perineum intact) Breast(s): Yes: WNL (not engorged . BF) Musculoskeletal: Yes: WNL Extremities: Yes: WNL. No: Calf Tenderness Edema: LLE: 1+, RLE: 1+ Integumentary: Yes: WNL Neurological: Yes: WNL ...Motor Strength: WNL Psychiatric: Yes: WNL Labs: CBC, BMP 12/26/19 17:35 12/26/19 00:50 Laboratory Tests 12/26/19 00:50 COVID-19 (WILLIAM) Pending Delivery - Delivery Type of Anesthesia: None Episiotomy/Laceration: None EBL (cc): 250 Delivery, Single - Stages of Labor Date 1st Stage Initiatied: 12/26/19 Time 1st Stage Initiated: 00:00 Date 2nd Stage Initiated: 12/26/19 Time 2nd Stage Initiated: 00:40 Date of Delivery: 12/26/19 Time of Delivery: 01:08 Time Placenta Delivered: 01:10 Placenta: Yes: Spontaneous - Condition of Infant Building Carpenter Helper/Hi Lift Operator Present: No Gender: Male Weight: 7 lb 1 oz Position: Left, OA Total Hours ROM (Hrs/Mins): 1h 8m - 1 Minute Total Score: 9 5 Minutes Total Score: 9 - [place] Feeding Plan Initial Plan: Elected not to breastfeed exclusively throughout hospitalization Remarks - Remarks Remarks: s/p , episode of heavy bleeding pp subsided with Iv pitocin & im Methergine pt is comfortable, stable she requests for discharge today. today AM cbc pending will watch her till 3o'clock, if stable will discharge Discharge Summary Problems reviewed: Yes Reason For Visit: LABOR ADMIT Current Active Problems Normal spontaneous vaginal delivery (Acute) with 39 completed weeks gestation (Acute) Condition: Stable - Instructions Diet, Activity, Other Instructions: Discharge Instructions * Out of Bed * * Regular Diet * Gege Care * Avoid sex for 6 weeks * RTC 3 weeks for f/u If you experience excessive bleeding or fever over 101 degrees, call doctor, the clinic or go to the Emergency Room. Referrals: Judy Sutherland [Primary Care Provider] - Mateus Castillo MD [Staff Physician] - Disposition: HOME - Home Medications Comprehensive Discharge Medication List: Ambulatory Orders Tablet 1 tab PO DAILY 11/07/19 Ferrous Sulfate [Feosol] 325 mg PO DAILY 12/13/19 Ferrous Sulfate [Feosol] 325 mg PO DAILY #30 tablet 12/27/19 Ibuprofen [Motrin -] 600 mg PO Q6H PRN #20 tablet 12/27/19 Vit 28/Iron Fum/Folic [Theranatal Core Nutrition Tab] 1 each PO DAILY #30 tablet 12/27/19
[2019-12-27] MEDS: ACETAMINOPHEN 325 MG TABLET (FP) PO PRN (08:14)
[2019-12-27] MEDS: IBUPROFEN 600 MG TABLET (FP) PO PRN (08:14)
[2019-12-27 09:03] LABS: BASO % 0.3 % (0-2.0); EOS % 1.4 % (0-4.5); HEMATOCRIT 37.7 % (32.4-45.2); HEMOGLOBIN 12.7 GM/dL (10.7-15.3); LYMPH % 23.2 % (8-40); MCH 31.2 pg (25.7-33.7); MCHC 33.7 g/dl (32.0-36.0); MEAN CELL VOLUME 92.5 fl (80-96); MEAN PLT VOLUME 8.6 fl (7.5-11.1); MONO % 5.9 % (3.8-10.2); NEUT % 69.2 % (42.8-82.8); PLATELET COUNT 225 K/MM3 (134-434); RBC 4.07 M/mm3 (3.60-5.2); RDW 13.9 % (11.6-15.6); WHITE BLOOD COUNT 8.7 K/mm3 (4.0-10.0)
[2019-12-27 12:25] VITALS: BP 115/80
[2019-12-27] MEDS ORDERED: SENNOSIDES/DOCUSATE COMBO (SENNA PLUS) TABLET (UD) PO PRN (22:00)
== END 2019-12-27 14:00 | disposition home or self-care (01) | DRG 560 ==
LOC: JDEL 00:15 → JLDR 00:40 → J3W 03:27
PROVIDERS: ADMIT Student in an Organized Health Care Education/Training Program; ATTEND Student in an Organized Health Care Education/Training Program
PROC: 10E0XZZ Delivery of Products of Conception, External Approach (ICD-10-PCS; principal; 2019-12-26)
DX: O80 Encounter for full-term uncomplicated delivery (principal); Z3A.39 39 weeks gestation of pregnancy; Z37.0 Single live birth
CPT/HCPCS: 36415; 59409; 80048; 85025; 85384; 85610; 85730; 86780; 86850; 86900; 86901; C9803; U0003